=== PATIENT | female | born 1955 | race Caucasian/White ===

== ENCOUNTER → 2017-09-15 12:28 | Outpatient (CLI) | payer OTHER, MEDICAID, SELFPAY ==
[2017-09-15 14:10] LABS: Thyroid Stimulating Hormone 2.09 uIU/mL (0.47-4.68)
[2017-09-15 14:11] LABS: Testosterone 24.6 ng/dL (5.71-77.0)
[2017-09-17 16:03] LABS: Progesterone 2.2 ng/mL
[2017-09-19 11:00] LABS: Estrogen 377.8 pg/mL
== END ==
PROVIDERS: PCP Family Medicine; Visit Provider Family Medicine
DX: N95.1 Menopausal and female climacteric states (principal); E03.9 Hypothyroidism, unspecified
CPT/HCPCS: 36415; 82672; 84144; 84403; 84443

== ENCOUNTER → 2018-12-23 12:42 | Outpatient (CLI) | payer OTHER, MEDICAID, SELFPAY ==
[2018-12-25 14:20] LABS: Fecal Immunochemical Test NOT DETECTED (NOT DETECTED)
== END ==
PROVIDERS: PCP Family Medicine; Visit Provider Family Medicine
DX: Z12.11 Encounter for screening for malignant neoplasm of colon (principal)
CPT/HCPCS: 82274

== ENCOUNTER → 2019-01-01 09:47 | Outpatient (CLI) | payer OTHER, MEDICAID, SELFPAY ==
[2019-01-01 11:08] LABS: Add Manual Diff / Slide Review NO; Basophils Absolute Auto 0 /uL (0-100); Basophils Percent Auto 0.4 % (0-2); Eosinophils Absolute Auto 100 /uL (0-450); Eosinophils Percent Auto 0.8 % (2-4); Hematocrit 44.5 % (36-46); Hemoglobin 15.1 g/dL (12.0-16.0); Lymphocytes Absolute Auto 2700 /uL (1100-4500); Lymphocytes Percent Auto 40.9 % (25-40); Mean Corpuscular Hemoglobin 30.7 PG (26-34); Mean Corpuscular Volume 90.2 fL (80-100); Monocytes Absolute Auto 400 /uL (0-900); Monocytes Percent Auto 5.3 % (3-14); Neutrophils Absolute Auto 3500 /uL (1500-7000); Neutrophils Percent Auto 52.6 % (50-75); Platelet Count 280 X10^3/uL (150-400); Red Blood Cell Count 4.93 X10^6/uL (4.0-5.2); White Blood Cell Count 6.7 X10^3/uL (4.5-11.0)
[2019-01-01 11:53] LABS: Alanine Aminotransferase 23 IU/L (9-52); Albumin 4.8 g/dL (3.5-5.0); Albumin Globulin Ratio 1.4 (1.0-2.8); Alkaline Phosphatase 67 U/L (38-126); Aspartate Aminotransferase 37 IU/L (14-36); BUN Creatinine Ratio 23.3 (6-22); Bilirubin Total 0.6 mg/dL (0.2-1.3); Blood Urea Nitrogen 14 mg/dL (7-17); Calcium 9.8 mg/dL (8.4-10.2); Carbon Dioxide 26 mmol/L (22-32); Chloride 104 mmol/L (98-107); Cholesterol 268 mg/dL (140-199); Estimated Glomerular Filt Rate > 60.0 mL/min (>60); Globulin 3.4 g/dL (1.7-4.1); Glucose 95 mg/dL (80-110); HDL Cholesterol 67 mg/dL (40-60); HEMOLYSIS 26 (0-50); LDL Cholesterol Calculated 183 mg/dL (<100); Potassium 4.5 mmol/L (3.4-5.1); Sodium 141 mmol/L (137-145); Total Protein 8.2 g/dL (6.3-8.2); Triglycerides 90 mg/dL (35-150)
[2019-01-01 12:33] LABS: Progesterone, Total 1.54 ng/mL
[2019-01-01 12:42] LABS: TSH w/ Reflex to FT4 2.64 uIU/mL (0.47-4.68)
[2019-01-01 12:44] LABS: Testosterone 19.6 ng/dL (5.71-77.0)
[2019-01-07 14:25] LABS: Estrogen 391.9 pg/mL
== END ==
PROVIDERS: PCP Family Medicine; Visit Provider Family Medicine
DX: M85.852 Other specified disorders of bone density and structure, left thigh (principal); E03.9 Hypothyroidism, unspecified; N95.1 Menopausal and female climacteric states
CPT/HCPCS: 36415; 77080; 80053; 80061; 82672; 84144; 84403; 84443; 85025

== ENCOUNTER → 2019-01-04 14:18 | Outpatient (CLI) | payer OTHER, MEDICAID, SELFPAY ==
--- NOTE | 2019-01-04 | DI.MG.S_ITS ---
BILATERAL DIGITAL DIAGNOSTIC MAMMOGRAM 3D/2D WITH AUGMENTATION: 01/04/2019 CLINICAL: Right breast changes including lower right breast concavity/palpable abnormality. Baseline exam. No prior exams were available for comparison. There are scattered fibroglandular elements in both breasts. Patient reports right breast changes including lower right breast concavity/palpable abnormality. There is a triangular marker overlying the skin of the lower right breast at the site of the patient's lower right breast concavity/palpable abnormality. The right breast implant is markedly smaller and more superior/high riding than the left breast implant. Both breast implants appear prepectoral and demonstrate contour abnormalities suggestive of implant leak. There is a focal asymmetry of the lower outer right breast which resolves with spot compression and tomosynthesis views, consistent with benign fibroglandular tissue. No suspicious masses, calcifications, or other findings are seen in either breast. IMPRESSION: INCOMPLETE: NEEDS ADDITIONAL IMAGING EVALUATION Bilateral mammographic findings suggestive of bilateral implant leakage, right worse than left, with the right implant appearing more superiorly placed/high riding than the left. No other suspicious masses or abnormalities of the inferior right breast are identified. Targeted diagnostic ultrasound recommended for further evaluation, which will be performed immediately following this exam. This exam was interpreted at Station ID: [id number]. NOTE: For mammograms, a report in lay terms will be sent to the patient. Approximately 15% of breast malignancies will not be visualized mammographically. In the management of a palpable breast mass, a negative mammogram must not discourage biopsy of a clinically suspicious lesion. Electronically Signed By: Gamal Car M.D. ecl/:01/04/2019 15:28:33 ACR BI-RADS Category 0: Incomplete [id number]
--- NOTE | 2019-01-04 14:21 | DI.US.S_ITS ---
LIMITED ULTRASOUND OF RIGHT BREAST: 01/04/2019 CLINICAL: Right breast changes including lower right breast concavity/palpable abnormality. Comparison is made to exam dated: 01/04/2019 [facility]. Color flow and real-time ultrasound of the right breast lower aspect were performed. Castañeda scale images of the real-time examination were reviewed. Targeted ultrasound of the lower right breast demonstrates a 0.8 x 0.6 x 0.5 cm oval indistinct hypoechoic mass demonstrating no internal vascularity on Doppler imaging and no shadowing artifact that is immediately adjacent to the patient's right breast implant at 9:00 position 6 cm from the nipple. This is nonspecific and may represent scarring or reactive edematous changes to the adjacent implant. Of note, comparison diagnostic mammography performed immediately prior to this exam on 01/04/19 demonstrated findings suggestive of bilateral implant leakage with the right implant being smaller and more superior/high-riding than the left. IMPRESSION: PROBABLY BENIGN 1) Targeted ultrasound of the lower right breast demonstrates a 0.8 x 0.6 x 0.5 cm oval indistinct hypoechoic mass demonstrating no internal vascularity on Doppler imaging and no shadowing artifact that is immediately adjacent to the patient's right breast implant at 9:00 position 6 cm from the nipple. This may represent scarring or reactive edematous changes to the adjacent implant. A follow-up ultrasound with possible mammogram in 6 months is recommended to demonstrate stability and to exclude an underlying developing lesion. Patient is advised to return sooner for reevaluation if she feels anything grow or change. 2) Of note, comparison diagnostic mammography performed immediately prior to this exam on 01/04/19 demonstrated findings suggestive of bilateral implant leakage with the right implant being smaller and more superior/high-riding than the left, which would account for the patient's reported lower right breast concavity. This exam was interpreted at Station ID: [id number]. Electronically Signed By: Gamal Car M.D. ecl/:01/04/2019 15:53:57 letter sent: Followup Recommended Ultrasound BI-RADS: 3 Probably benign
[2019-01-06 19:30] LABS: RPR Screen Nonreactive (Nonreactive)
[2019-01-11 12:30] LABS: Hepatitis A Antibody IgM NONREACTIVE; Hepatitis B Core Antibody IgM NONREACTIVE; Hepatitis B Surface Antigen NONREACTIVE
[2019-01-12 15:11] LABS: HIV-1/2 confirmation Not Detected (Not detected)
[2019-01-13 15:17] LABS: Hepatitis C Antibody REACTIVE
== END ==
PROVIDERS: PCP Family Medicine; Visit Provider Family Medicine
DX: Z11.3 Encounter for screening for infections with a predominantly sexual mode of transmission (principal); R92.8 Other abnormal and inconclusive findings on diagnostic imaging of breast; N63.10 Unspecified lump in the right breast, unspecified quadrant; Z98.82 Breast implant status
CPT/HCPCS: 36415; 76642; 77066; 80074; 86592; 87535; G0279

== ENCOUNTER → 2019-01-05 16:08 | Outpatient (ROUT) | payer OTHER, MEDICAID, SELFPAY ==
[2019-01-08 14:32] LABS: C.trachomatis RNA NOT DETECTED
[2019-01-08 14:33] LABS: N.gonorrhoeae RNA NOT DETECTED
== END ==
PROVIDERS: PCP Family Medicine; Visit Provider Family Medicine
DX: N89.8 Other specified noninflammatory disorders of vagina (principal)
CPT/HCPCS: 87491; 87591

== ENCOUNTER → 2019-04-03 09:19 | Outpatient (CLI) | payer OTHER, MEDICAID, SELFPAY ==
[2019-04-03 10:01] LABS: Influenza A - CEPHEID Flu A NEGATIVE (NEGATIVE); Influenza B - CEPHEID Flu B NEGATIVE (NEGATIVE)
== END ==
PROVIDERS: PCP Family Medicine; Visit Provider Nurse Practitioner
DX: R68.89 Other general symptoms and signs (principal)
CPT/HCPCS: 87502

== ENCOUNTER → 2020-05-16 14:56 | Outpatient (CLI) | payer OTHER, MEDICAID, SELFPAY ==
[2020-05-16 15:51] LABS: Add Manual Diff / Slide Review NO; Basophils Absolute Auto 0 /uL (0-100); Basophils Percent Auto 0.6 % (0-2); Eosinophils Absolute Auto 100 /uL (0-450); Eosinophils Percent Auto 1.5 % (2-4); Hematocrit 44.6 % (36-46); Hemoglobin 15.3 g/dL (12.0-16.0); Lymphocytes Absolute Auto 1900 /uL (1100-4500); Mean Corpuscular HGB Conc 34.2 % (30-36); Mean Corpuscular Hemoglobin 30.9 PG (26-34); Mean Corpuscular Volume 90.3 fL (80-100); Monocytes Absolute Auto 400 /uL (0-900); Monocytes Percent Auto 8.6 % (3-14); Neutrophils Absolute Auto 2800 /uL (1500-7000); Neutrophils Percent Auto 53.3 % (50-75); Platelet Count 277 X10^3/uL (150-400); Red Blood Cell Count 4.93 X10^6/uL (4.0-5.2); White Blood Cell Count 5.2 X10^3/uL (4.5-11.0)
[2020-05-16 16:04] LABS: Alanine Aminotransferase 23 IU/L (<35); Albumin 4.6 g/dL (3.5-5.0); Albumin Globulin Ratio 1.5 (1.0-2.8); Alkaline Phosphatase 57 U/L (38-126); Aspartate Aminotransferase 27 IU/L (14-36); BUN Creatinine Ratio 25.8 (6-22); Bilirubin Total 0.4 mg/dL (0.2-1.3); Blood Urea Nitrogen 17 mg/dL (7-17); Calcium 10.5 mg/dL (8.4-10.2); Carbon Dioxide 28 mmol/L (22-32); Chloride 105 mmol/L (98-107); Cholesterol 277 mg/dL (140-199); Estimated Glomerular Filt Rate > 60.0 mL/min (>60); Globulin 3.1 g/dL (1.7-4.1); Glucose 88 mg/dL (80-110); HDL Cholesterol 71 mg/dL (40-60); HEMOLYSIS < 15 (0-50); LDL Cholesterol Calculated 164 mg/dL (<100); Potassium 4.7 mmol/L (3.4-5.1); Sodium 138 mmol/L (137-145); Total Protein 7.7 g/dL (6.3-8.2); Triglycerides 210 mg/dL (35-150)
[2020-05-16 16:21] LABS: Progesterone, Total 1.52 ng/mL
[2020-05-16 16:35] LABS: Thyroid Stimulating Hormone 1.22 uIU/mL (0.47-4.68)
[2020-05-16 16:37] LABS: Estradiol, Total 63.6 pg/mL
[2020-05-20 08:28] LABS: Percent Free Testosterone 1.32 % (0.50-2.80); Testosterone Free 0.28 ng/dL (0.10-0.85); Testosterone Total 21.5 ng/dL (7.0-40.0)
== END ==
PROVIDERS: PCP Family Medicine; Referring Provider Obstetrics & Gynecology; Visit Provider Obstetrics & Gynecology
DX: N95.1 Menopausal and female climacteric states (principal); E03.9 Hypothyroidism, unspecified; E78.5 Hyperlipidemia, unspecified
CPT/HCPCS: 36415; 80053; 80061; 82670; 84144; 84402; 84403; 84439; 84443; 85025

== ENCOUNTER → 2020-10-09 09:12 | Outpatient (CLI) | payer OTHER, MEDICAID, SELFPAY ==
[2020-10-09 10:59] LABS: COVID19 -Nasal RAPID Negative (Negative)
== END ==
PROVIDERS: PCP Family Medicine; Visit Provider Student in an Organized Health Care Education/Training Program
DX: Z01.812 Encounter for preprocedural laboratory examination (principal); Z20.822 Contact with and (suspected) exposure to COVID-19
CPT/HCPCS: 87635

== ENCOUNTER → 2021-01-15 16:41 | Outpatient (CLI) | payer MEDICARE, MEDICAID, SELFPAY ==
[2021-01-15 17:40] LABS: Calcium 9.3 mg/dL (8.4-10.2); Cholesterol 230 mg/dL (140-199); HDL Cholesterol 48 mg/dL (40-60); LDL Cholesterol Calculated 129 mg/dL (<100); Triglycerides 263 mg/dL (35-150)
[2021-01-15 18:14] LABS: Testosterone 7.77 ng/dL (5.71-77.0)
[2021-01-17 16:45] LABS: Follicle Stimulating Hormone 40.5 mIU/mL; Luteinizing Hormone 26.3 mIU/mL
[2021-01-18 15:35] LABS: Estriol,Serum 0.1 ng/mL (.); Estrone,Serum 112 pg/mL (.)
== END ==
PROVIDERS: PCP Family Medicine; Referring Provider Family Medicine; Visit Provider Family Medicine
DX: E78.5 Hyperlipidemia, unspecified (principal); E83.52 Hypercalcemia; N95.1 Menopausal and female climacteric states
CPT/HCPCS: 36415; 80061; 82310; 82670; 82677; 82679; 83001; 83002; 84403

== ENCOUNTER → 2022-07-19 10:21 | Outpatient (CLI) | payer MEDICARE, SELFPAY ==
[2022-07-19 14:49] LABS: Cholesterol 253 mg/dL (140-199); Glucose 96 mg/dL (80-110); HDL Cholesterol 72 mg/dL (40-60); LDL Cholesterol Calculated 152 mg/dL (<100); Triglycerides 145 mg/dL (35-150)
[2022-07-19 15:15] LABS: TSH w/ Reflex to FT4 1.86 uIU/mL (0.47-4.68)
[2022-07-19 15:20] LABS: Testosterone 18.4 ng/dL (5.71-77.0)
[2022-07-19 15:33] LABS: Progesterone, Total 1.75 ng/mL
[2022-07-24 12:54] LABS: Estriol,Serum 0.3 ng/mL (.); Estrone,Serum 165 pg/mL (0-125)
== END ==
PROVIDERS: PCP Family Medicine; Referring Provider Family Medicine; Visit Provider Family Medicine
DX: E78.5 Hyperlipidemia, unspecified (principal); E03.9 Hypothyroidism, unspecified; N95.1 Menopausal and female climacteric states; R73.9 Hyperglycemia, unspecified
CPT/HCPCS: 36415; 80061; 82670; 82677; 82679; 82947; 84144; 84403; 84443

== ENCOUNTER → 2023-09-17 12:19 | Outpatient (CLI) | payer MEDICARE, SELFPAY ==
--- NOTE | 2023-09-17 12:22 | DI.RAD.S_ITS ---
PROCEDURE: XR LUMBAR SPINE 2-3V INDICATIONS: hip pain TECHNIQUE: 3 views of the lumbar spine were acquired. COMPARISON: None. FINDINGS: Bones: 5 [id number] vertebrae are present. There is normal bony alignment. No vertebral body compression fractures. No suspicious bony lesions. Mild multilevel lumbar spondylosis with degenerative endplate changes, minimal disc space loss, and mild endplate osteophyte formation. Soft tissues: Overlying bowel gas pattern is normal. No suspicious soft tissue calcifications. IMPRESSION: Lumbar spine without acute osseous abnormalities. Mild multilevel spondylosis. Dictated by: Mauro Raymundo M.D. on 09/17/2023 at 16:22 Approved by: Mauro Raymundo M.D. on 09/17/2023 at 16:23
--- NOTE | 2023-09-17 12:22 | DI.RAD.S_ITS ---
PROCEDURE: XR HIP W PEL IF DONE LT 2V INDICATIONS: pain TECHNIQUE: AP pelvis with lateral view(s) of the left hip(s). COMPARISON: [facility], CR, [id number] W PEL IF PERFORMED, 07/16/2016, 11:55. FINDINGS: Bones: No fractures or dislocations. Pelvic ring appears intact. No suspicious bony lesions. Mild bilateral hip degenerative changes. Mild lower lumbar spondylosis. Soft tissues: The visualized bowel gas pattern is normal. No suspicious soft tissue calcifications. Redemonstration of multiple pelvic phleboliths. IMPRESSION: Left hip without acute osseous abnormalities or malalignment. Mild degenerative changes of the bilateral hips. Dictated by: Mauro Raymundo M.D. on 09/17/2023 at 16:21 Approved by: Mauro Raymundo M.D. on 09/17/2023 at 16:22
== END ==
LOC: RAD 12:21
PROVIDERS: PCP Family Medicine; Referring Provider Family Medicine; Visit Provider Family Medicine
DX: M47.816 Spondylosis without myelopathy or radiculopathy, lumbar region (principal); M25.552 Pain in left hip
CPT/HCPCS: 72100; 73502

== ENCOUNTER → 2023-09-18 08:53 | Outpatient (CLI) | payer MEDICARE, SELFPAY ==
[2023-09-18 10:06] LABS: Cholesterol 243 mg/dL (140-199); HDL Cholesterol 61 mg/dL (40-60); LDL Cholesterol Calculated 155 mg/dL (<100); Triglycerides 135 mg/dL (35-150)
[2023-09-18 10:37] LABS: Thyroid Stimulating Hormone 2.22 uIU/mL (0.47-4.68)
[2023-09-18 10:38] LABS: Estradiol, Total 82.5 pg/mL
[2023-09-18 13:25] LABS: Hemoglobin A1C% w Est Avg Glu 5.7 % (4.0-6.0)
== END ==
LOC: LAB 08:54
PROVIDERS: PCP Family Medicine; Referring Provider Family Medicine; Visit Provider Family Medicine
DX: Z13.9 Encounter for screening, unspecified (principal); R63.5 Abnormal weight gain
CPT/HCPCS: 36415; 80061; 82670; 83036; 84443